=== PATIENT | male | born 2000 | race Caucasian/White ===

== ENCOUNTER 2024-05-26 17:30 | Emergency (ER) | payer BC, SELFPAY ==
[2024-05-26 17:38] VITALS: BP 138/81; PULSE 65; RESP 16; TEMP 36.7; O2SAT 100
--- NOTE | 2024-05-26 17:59 | ECG_ITS ---
Test Date: 2024-05-26 18:04:05 Measurements Intervals Mize Rate: 54 P: 31 VA: 143 QRS: 66 QRSD: 116 T: 56 QT: 400 QTc: 381 Interpretive Statements SINUS BRADYCARDIA INCOMPLETE RIGHT BUNDLE BRANCH BLOCK BASELINE ARTIFACT- I, II, III, AVR, AVL, AVF, V5 BORDERLINE ECG No previous ECG available for comparison Electronically Signed On 05-26-2024 18:27:24 [employer]ING C[employer] WRITER by Keith Salazar D.O.
--- NOTE | 2024-05-26 18:01 | ED.CHESTPAIN ---
HPI - Chest Pain General Chief Complaint: Chest Pain Stated Complaint: Chest Pain Time Seen by Provider: 05/26/24 17:49 Source: patient and RN notes reviewed Mode of arrival: ambulatory Limitations: no limitations History of Present Illness HPI narrative: Patient presents today with a 2 day history of left upper chest pain that has been worse since yesterday. Currently rates his chest pain 4/10, which increases with deep breath. He has tried Tylenol without relief. Denies any recent illness or cough. Denies shortness of breath, abdominal pain, dizziness or lightheadedness, nausea or vomiting, fever, weakness, numbness or tingling, headache, or any additional symptoms. Patient states 2 years ago he had an EKG done and had an irregularity, but states it was not, ?serious? enough to see Cardiology. He does not remember the name, but reports his mother has the same irregularity. Denies history of hypertension, high cholesterol. No family members with unexplained early . Review of Systems Review of Systems: CONSTITUTIONAL: Denies body aches, fever, chills, or sweats. EYES: Denies visual changes, redness, or discharge. ENT: Denies rhinorrhea, congestion, sore throat, or otalgia. CARDIOVASCULAR: Denies palpitations, or edema.+ chest pain RESPIRATORY: Denies cough or dyspnea. GASTROINTESTINAL: Denies abdominal pain, nausea, vomiting, or diarrhea. GENITOURINARY: Denies dysuria or hematuria. SKIN: Denies rash, itching, or wounds. MUSCULOSKELETAL: Denies back pain, joint pain, or myalgia. NEUROLOGIC: Denies headache, numbness, tingling, or weakness. PSYCH: Denies depression or anxiety. PMFSH Comments At time of signature, I have reviewed and agree with nursing past medical, surgical, social and family history unless otherwise noted. Please see nursing chart for further information. There is no relevant family history pertinent to the presenting complaint Exam Narrative: GENERAL: Well-appearing, well-nourished, and in no acute distress. HEAD: Normocephalic, atraumatic. EYES: EOMI. No redness or drainage. Conjunctivae normal. ENT: Mucous membranes pink and moist. NECK: Normal AROM. Supple. No lymphadenopathy. CHEST: No respiratory distress. Clear to auscultation. Chest is nontender. HEART: Regular rate and rhythm. No murmur appreciated. Normal peripheral pulses. EXTREMITIES: Normal range of motion. No edema. SKIN: Warm, dry, no rash. Capillary refill normal. Normal skin turgor. NEURO: No focal deficits. Alert and oriented x3. Gait steady. PSYCH: Normal affect. No signs of depression or anxiety. Course Course Level of Care: Express Care Visit Vital Signs Vital signs: Vital Signs Temperature 98.1 F 05/26/24 17:38 Pulse Rate 65 05/26/24 17:38 Respiratory Rate 16 05/26/24 17:38 Blood Pressure 138/81 05/26/24 17:38 Pulse Oximetry 100 05/26/24 17:38 Temperature 98.1 F 05/26/24 17:38 Pulse Rate 65 05/26/24 17:38 Respiratory Rate 16 05/26/24 17:38 Blood Pressure 138/81 05/26/24 17:38 Pulse Oximetry 100 05/26/24 17:38 Reviewed MDM - Chest Pain MDM Narrative Medical decision making narrative: Vital signs stable. EKG shows sinus bradycardia. Patient has been a runner in the past, but no for a couple of years. His appearance is nontoxic. At this time he has declined transfer to the ER. Instructed to follow-up with PCP for further evaluation, with understanding that the ER is always open if he feels worse. Differential Diagnosis Differential diagnosis: Likely pneumothorax, stable angina, atypical chest pain, st elevation myocardial infarction, costochondritis and chest pain ECG Data EKG #1: Attestation: I personally reviewed and interpreted this ECG as follows: ECG completion date: 05/26/24 ECG completion time: 18:04 Prior ECG tracings: not available for review Interpretation: Sinus bradycardia, heart rate 54. IA interval 143. Critical Care Time Critical Care Time Critical Care Time: No Discharge Plan Discharge Clinical Impression: Chest pain Qualifiers: Chest pain type: unspecified Qualified Code(s): R07.9 - Chest pain, unspecified Patient Disposition: Home, Self-Care Condition: Stable Instructions: Chest Wall Pain (ED) Additional Instructions: Please follow-up with your PCP for further evaluation. As discussed, take Tylenol or ibuprofen if needed. Go to the ER if symptoms worsen to include difficulty breathing, dizziness or lightheadedness, nausea or vomiting, weakness, abdominal pain etc.. Your blood pressure was elevated above 120/80 today at Urgent Care. This puts you above the threshold for follow up. Please schedule a followup visit with your personal physician as soon as possible, for further evaluation and treatment. Even blood pressure exceeding 120/80 may indicate pre-hypertension. Follow-up/Referrals: PHYSICIAN,[employer] ASSISTANT [Primary Care Provider] - Time of Disposition: 18:21
== END 2024-05-26 18:25 | disposition home or self-care (01) ==
PROVIDERS: Emergency Provider Nurse Practitioner
DX: R07.9 Chest pain, unspecified (principal)
CPT/HCPCS: 93005; 99203; G0463